=== PATIENT | female | born 1950 | race African-American/Black ===

== ENCOUNTER 2019-04-23 09:26 | Emergency (ER) | payer OTHER ==
[~2019-04-23] VITALS: Ht 162.6 cm; Wt 73.5 kg
[2019-04-23] MEDS ORDERED: PRAVASTATIN SOD20 MG PO (09:36)
[2019-04-23] MEDS ORDERED: CHLORTHALIDONE25 MG PO (09:36)
[2019-04-23] MEDS ORDERED: PROTONIX40 M2 PO (09:36)
[2019-04-23] MEDS ORDERED: VITAMIN E1000 UNIT PO (09:37)
[2019-04-23] MEDS ORDERED: VITAMIN B-121000 MC2 PO (09:37)
[2019-04-23] MEDS ORDERED: KLOR-CON 1010 MEQ PO (09:38)
[2019-04-23] MEDS ORDERED: BIOTIN5000 MCG PO (09:39)
[2019-04-23] MEDS ORDERED: VITAMIN D32000 UNIT PO (09:40)
[2019-04-23 10:06] LABS: BASOPHILS 1.2 % (0.0-2.0); EOSINOPHILS 2.5 % (0.0-3.0); HEMATOCRIT 45.4 % (37.0-47.0); HEMOGLOBIN 15.1 gm/dL (12.0-15.0); LYMPHOCYTES 39.3 % (24.0-44.0); MCH 29.4 pg (26.0-34.0); MCHC 33.3 g/dL (28.0-37.0); MCV 88.4 fL (80.0-100.0); MONOCYTES 6.1 % (1.0-8.0); PLATELET COUNT 236 thou/uL (150-400); POLYS 50.9 % (36.0-66.0); RBC 5.14 mil/uL (4.20-5.00); RDW 13.9 % (10.5-14.5)
[2019-04-23 10:21] LABS: ALBUMIN 3.9 g/dL (3.4-5.0); CREATININE 0.7 mg/dL (0.6-1.0); DIRECT BILIRUBIN 0.1 mg/dL (<0.1-0.2); TOTAL BILIRUBIN 0.8 mg/dL (<0.1-1.0); TOTAL PROTEIN 7.7 g/dL (6.4-8.2)
[2019-04-23 10:23] LABS: POTASSIUM 2.9 mmol/L (3.5-5.1)
[2019-04-23 10:29] LABS: CALCIUM 9.8 mg/dL (8.5-10.1)
--- NOTE | 2019-04-23 10:32 | EKG ---
[address] [address] [place] [address] ELECTROCARDIOGRAM REPORT Name: IVET ACEVEDO [facility]: [facility]OXIFrancesca#: [id number] Admission: 04/23/19 Attend Phys: Discharge: Date of : 52 Report #: [id number] THIS REPORT FOR: //name// [facility] ED Test Date: 2019-04-23 Test Time: 09:28:20 Pat Name: IVET ACEVEDO Department: Room: Gender: F [employer]: GIULIANO : 1950 Requested By: Lesli Woods Order Number: [id number] MD: Margarito Maguire Measurements Intervals [place] Rate: 73 P: 49 LA: 141 QRS: -24 QRSD: 84 T: 144 QT: 382 QTc: 421 Interpretive Statements Sinus rhythm Abnormal R-wave progression, 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
[2019-04-23 10:56] LABS: URINE BILIRUBIN NEGATIVE (Negative); URINE BLOOD TRACE (Negative); URINE CLARITY CLEAR; URINE COLOR YELLOW; URINE GLUCOSE-RANDOM* NEGATIVE (Negative); URINE KETONES NEGATIVE (Negative); URINE LEUKOCYTES-REFLEX NEGATIVE (Negative); URINE NITRITE-REFLEX NEGATIVE (Negative); URINE PROTEIN (DIPSTICK) NEGATIVE (Negative); URINE UROBILINOGEN 0.2 E.U./dl (0.2-1.0)
[2019-04-23 12:30] VITALS: BP 173/91
== END 2019-04-23 12:31 | disposition home or self-care (01) ==
LOC: ER 09:26
PROVIDERS: Emergency Medicine
DX: R42 Dizziness and giddiness (principal); R11.2 Nausea with vomiting, unspecified